=== PATIENT | female | born 1945 | race Caucasian/White ===

== ENCOUNTER 2019-04-03 11:27 | Outpatient (REF) | payer MEDICARE, MEDICAID, SELFPAY | END 2019-04-03 11:28 | disposition home or self-care (01) | LOC: LAB 11:27 | PROVIDERS: Family Provider Family Medicine; PCP Family Medicine; Visit Provider Family Medicine | DX: Z76.89 Persons encountering health services in other specified circumstances (principal) ==

== ENCOUNTER 2019-10-09 09:10 | Outpatient (CLI) | payer MEDICARE, MEDICAID, SELFPAY ==
--- NOTE | 2019-10-09 09:18 | CT_ITS ---
WS: [id number] CT scan of the head, with and without IV contrast, 10/09/2019 Clinical Data: Hemiplegia Comparison: CT head, 03/10/2018. DLP: 1851.[address] scans at [facility] use at least one of these dose optimization techniques: automat ed exposure control; mA and/or kV adjustment per patient size (includes targeted exams where dose is matched to clinical indication); or iterative reconstruction. Findings: There is extensive left encephalomalacia involving the temporal, parietal, frontal and occi pital lobes unchanged from previous study. The anterior horn of the left lateral ventricle remains di lated. There is moderate dilation of the right lateral ventricle. The post craniotomy changes of the right frontal bone remain the same. There are craniotomy sites of the vertex both anteriorly and post eriorly. The postoperative changes of hemorrhage and air noted on the prior study in the right fronta l lobe have cleared totally. No abnormal contrast enhancement of any structure occurs. No subdural he matoma or intracerebral hematoma is seen. No recent infarct or hemorrhage is seen. No ventricular rosalee ft is present. The cerebellum and brainstem are unremarkable. Bony windows of the skull and skull base show no fractures or erosions. The mastoid air cells, network intern al auditory canals, sella turcica, intraorbital contents, and paranasal sinuses are unremarkable. CT/CT head wo/w con [id number] Impression: 1. Left encephalomalacia unchanged. 2. Craniotomy changes involving the right frontal bone and also the vertex jarrett in the same. 3. Ventriculomegaly unchanged. 4. Negative for acute intracerebral or cerebellar abnormalities.
[2019-10-09 10:10] LABS: Blood Urea Nitrogen 9 mg/dL (8-23)
[2019-10-09] MEDS: iohexol 300 mg/mL 100 mL Btl IV (11:30)
== END 2019-10-09 09:11 | disposition home or self-care (01) ==
PROVIDERS: Family Provider Family Medicine; PCP Family Medicine; Visit Provider Nurse Practitioner Family
DX: G81.93 Hemiplegia, unspecified affecting right nondominant side (principal); G93.89 Other specified disorders of brain
CPT/HCPCS: 70470; 82565; 84520; Q9967

== ENCOUNTER → 2021-09-30 14:59 | Outpatient (BNVA) | payer MEDICARE, MEDICAID, SELFPAY | PROVIDERS: Family Provider Family Medicine; PCP Family Medicine; Visit Provider Internal Medicine Cardiovascular Disease | DX: I10 Essential (primary) hypertension (principal) | CPT/HCPCS: 99213; 99214 ==

== ENCOUNTER → 2022-09-29 14:10 | Outpatient (BNVA) | payer MEDICARE, MEDICAID, SELFPAY | PROVIDERS: Family Provider Family Medicine; PCP Family Medicine; Visit Provider Internal Medicine Cardiovascular Disease | DX: I10 Essential (primary) hypertension (principal); E78.5 Hyperlipidemia, unspecified; F32.9 Major depressive disorder, single episode, unspecified; G40.909 Epilepsy, unspecified, not intractable, without status epilepticus | CPT/HCPCS: 99214 ==

== ENCOUNTER 2023-10-27 09:14 | Outpatient (CLI) | payer MEDICARE, MEDICAID, SELFPAY ==
--- NOTE | 2023-10-27 09:21 | CT_ITS ---
WS: [id number] CT HEAD TECHNIQUE: Noncontrast CT of the head obtained from the skullbase to the vertex. CLINICAL INFORMATION: NEOPLASM OF UNSPECIFIED BEHAVIOR OF BRAIN COMPARISON:CT head 2019 2018 and 2017 DLP: 968.[address] scans at [facility] use at least one of these dose optimization techniques: automated e xposure control; mA and/or kV adjustment per patient size (includes targeted exams where dose is matc hed to clinical indication); or iterative reconstruction. FINDINGS: Peripherally calcified extra-axial lesion LEFT frontal lobe along the falx measuring 1.0 x 1.0 cm mos t compatible with meningioma. This appears increased in size since 2019. In 2018 this measured approx imately 7.7 x 7.9 mm. No visualized surrounding edema. Recommend interval follow-up in 6 months with contrast. MRI with and without gadolinium could also be obtained. Prior RIGHT frontal parietal and RIGHT frontal parietal craniotomies. Stable resection cavity in RIGH T frontal lobe near the vertex with associated dystrophic calcifications. Stable extensive encephalom alacia involving the LEFT hemisphere worse involving the LEFT temporal occipital and parietal lobes. Ex vacuo dilatation the LEFT lateral ventricle is unchanged. Dystrophic calcification along the falx. Tiny chronic lacunar infarcts along the posterior lateral RIGHT internal capsule. Paranasal sinuses are well aerated. Calcified osteoma RIGHT frontal ethmoidal recess. Mastoid air humberto ls are well aerated. Normal posterior nasopharynx. Vascular calcification. CT/CT head wo con* [id number] IMPRESSION: 1. Increasing suspected calcified meningioma along the LEFT frontal lobe and f jessica measuring 10.2 x 10.1 mm. Recommend 6-month follow-up with contrast-enhance d CT or MRI without and with gadolinium enhancement. 2. No other significant changes. 3. Prior craniotomies as described above with stable resection cavity in the R IGHT frontal lobe near the vertex. 4. Encephalomalacia LEFT temporal parietal and occipital lobes described above with expected dilatation LEFT lateral ventricle unchanged. 5. Tiny chronic lacunar infarct along the RIGHT internal capsule unchanged.
== END 2023-10-27 09:15 | disposition home or self-care (01) ==
LOC: RAD 09:14
PROVIDERS: Family Provider Family Medicine; PCP Family Medicine; Visit Provider Nurse Practitioner Family
DX: D49.6 Neoplasm of unspecified behavior of brain (principal); G93.40 Encephalopathy, unspecified; G91.9 Hydrocephalus, unspecified; D16.4 Benign neoplasm of bones of skull and face; M62.81 Muscle weakness (generalized)
CPT/HCPCS: 70450

== ENCOUNTER → 2023-11-01 15:09 | Outpatient (BNVA) | payer MEDICARE, MEDICAID, SELFPAY | PROVIDERS: Family Provider Family Medicine; PCP Family Medicine; Visit Provider Internal Medicine Cardiovascular Disease | DX: I10 Essential (primary) hypertension (principal); E78.5 Hyperlipidemia, unspecified | CPT/HCPCS: 99213 ==

== ENCOUNTER → 2025-02-07 06:52 | Outpatient (BNVA) | payer MEDICARE, MEDICAID, SELFPAY | PROVIDERS: Family Provider Family Medicine; PCP Family Medicine; Visit Provider Podiatrist Foot & Ankle Surgery | DX: L97.512 Non-pressure chronic ulcer of other part of right foot with fat layer exposed (principal); L60.3 Nail dystrophy; L03.031 Cellulitis of right toe; L84 Corns and callosities | CPT/HCPCS: 10140; 11056; 11721; 99204 ==

== ENCOUNTER → 2025-02-25 08:14 | Outpatient (BNVA) | payer MEDICARE, MEDICAID, SELFPAY | PROVIDERS: Family Provider Family Medicine; PCP Family Medicine; Visit Provider Podiatrist Foot & Ankle Surgery | DX: E11.8 Type 2 diabetes mellitus with unspecified complications (principal); L60.3 Nail dystrophy; E11.621 Type 2 diabetes mellitus with foot ulcer; L97.512 Non-pressure chronic ulcer of other part of right foot with fat layer exposed; L03.031 Cellulitis of right toe; L84 Corns and callosities | CPT/HCPCS: 99213 ==